=== PATIENT | female | born 1945 | race Caucasian/White ===

== ENCOUNTER 2018-08-18 14:44 | Inpatient (IN) | payer MEDICARE ==
[2018-08-18 15:24] LABS: ADD MAN DIFF? NO
[2018-08-18 15:33] LABS: BASOPHILS % 0.4 % (0.0-2.0); EOSINOPHILS # 0.1 10^3/ul (0.0-0.5); EOSINOPHILS % 0.9 % (0.0-7.0); HEMATOCRIT 27.8 % (37.0-47.0); HEMOGLOBIN 8.9 g/dl (12.0-16.0); LYMPHOCYTES # 0.7 10^3/ul (0.8-2.9); LYMPHOCYTES % 9.3 % (15.0-51.0); MEAN CORPUSCULAR HEMOGLOBIN 34.4 pg (29.0-33.0); MEAN CORPUSCULAR VOLUME 107.3 fl (82.0-101.0); MEAN PLATELET VOLUME 9.7 fl (7.4-10.4); MONOCYTE # 0.8 10^3/ul (0.3-0.9); MONOCYTES % 9.7 % (0.0-11.0); NEUTROPHIL # 6.1 10^3/ul (1.6-7.5); NEUTROPHILS % 78.9 % (39.0-77.0); PLATELET COUNT 270 10^3/UL (140-415); RED BLOOD COUNT 2.59 10^6/ul (4.20-5.40); RED CELL DISTRIBUTION WIDTH 15.2 % (11.5-14.5)
[2018-08-18 15:33] LABS: WHITE BLOOD COUNT 7.7 10^3/ul (4.8-10.8)
[2018-08-18 15:41] LABS: ANION GAP 6 (5-13); BLOOD UREA NITROGEN 11 mg/dl (7-20); CALCIUM 8.4 mg/dl (8.4-10.2); CARBON DIOXIDE 33 mmol/L (21-31); CHLORIDE 103 mmol/L (97-110); CREATININE 0.37 mg/dl (0.44-1.00); GLUCOSE 119 mg/dl (70-220); SODIUM 142 mmol/L (135-144)
[2018-08-18 15:44] LABS: INR 0.89; PROTIME 12.2 Sec (11.9-14.9)
[2018-08-18 15:45] LABS: PARTIAL THROMBOPLASTIN TIME 38.2 Sec (23.0-35.0)
[2018-08-18 15:46] LABS: POTASSIUM 2.6 mmol/L (3.5-5.1)
[2018-08-18] MEDS: morphine 2 MG INJ IV (17:38)
[2018-08-18] MEDS: ONDANSETRON 4 MG INJ IV (17:38)
[2018-08-18] MEDS: POTASSIUM CHLORIDE 100 ML IVPB ×2 (17:39→19:48)
[2018-08-18] MEDS: POTASSIUM CHLORIDE (SR) 20 MEQ TAB PO (17:39)
[2018-08-18] MEDS: SOD CHLORIDE 0.9% 1,000 ML IV (17:39)
[2018-08-18] MEDS ORDERED: NACL 0.9% 3 ML SYG IV (19:00)
[2018-08-18] MEDS: FAMOTIDINE 20 MG INJ IV (19:17)
[2018-08-18] MEDS: DEXTROSE 5%-0.45% NACL 1,000 ML IV (19:17)
[2018-08-19] MEDS: METOPROLOL 25 MG TAB PO ×3 (00:50→20:58)
[2018-08-19] MEDS: MAGNESIUM SULFATE 1 GM/D5W 100 ML IVPB (01:59)
[2018-08-19] MEDS: HYDROCODONE/APAP (5/325) TAB PO ×3 (02:06→20:04)
[2018-08-19 05:32] LABS: ADD MAN DIFF? NO
[2018-08-19 05:49] LABS: WHITE BLOOD COUNT 6.9 10^3/ul (4.8-10.8)
[2018-08-19 05:49] LABS: BASOPHILS % 0.1 % (0.0-2.0); EOSINOPHILS % 0.4 % (0.0-7.0); HEMATOCRIT 23.9 % (37.0-47.0); HEMOGLOBIN 7.6 g/dl (12.0-16.0); LYMPHOCYTES # 0.7 10^3/ul (0.8-2.9); LYMPHOCYTES % 10.4 % (15.0-51.0); MEAN CORPUSCULAR HEMOGLOBIN 34.5 pg (29.0-33.0); MEAN CORPUSCULAR HGB CONC 31.8 g/dl (32.0-37.0); MEAN CORPUSCULAR VOLUME 108.6 fl (82.0-101.0); MEAN PLATELET VOLUME 10.1 fl (7.4-10.4); MONOCYTE # 0.8 10^3/ul (0.3-0.9); MONOCYTES % 11.5 % (0.0-11.0); NEUTROPHIL # 5.3 10^3/ul (1.6-7.5); NEUTROPHILS % 76.9 % (39.0-77.0); PLATELET COUNT 237 10^3/UL (140-415); RED CELL DISTRIBUTION WIDTH 15.1 % (11.5-14.5)
[2018-08-19 05:54] LABS: HEMOGLOBIN A1C 5.1 % (0-5.9)
[2018-08-19 06:04] LABS: IRON 21 ug/dl (35-150)
[2018-08-19 06:13] LABS: % IRON SATURATION 12 % SAT (22-52); TOTAL IRON BINDING CAPACITY 170 ug/dl (241-421)
[2018-08-19 06:15] LABS: ALANINE AMINOTRANSFERASE 22 IU/L (13-69); ALBUMIN 2.5 g/dl (3.3-4.9); ALBUMIN/GLOBULIN RATIO 0.89; ALKALINE PHOSPHATASE 69 IU/L (42-121); ANION GAP 6 (5-13); ASPARTATE AMINO TRANSFERASE 13 IU/L (15-46); BILIRUBIN,INDIRECT 0.8 mg/dl (0-1.1); BILIRUBIN,TOTAL 0.8 mg/dl (0.2-1.3); BLOOD UREA NITROGEN 9 mg/dl (7-20); CALCIUM 8.1 mg/dl (8.4-10.2); CARBON DIOXIDE 31 mmol/L (21-31); CHLORIDE 105 mmol/L (97-110); CREATININE 0.33 mg/dl (0.44-1.00); GLUCOSE 107 mg/dl (70-220); MAGNESIUM 2.3 mg/dl (1.7-2.5); POTASSIUM 3.4 mmol/L (3.5-5.1); SODIUM 142 mmol/L (135-144); TOTAL PROTEIN 5.3 g/dl (6.1-8.1)
[2018-08-19] MEDS: FAMOTIDINE 20 MG INJ IV (09:32)
[2018-08-19] MEDS: ESCITALOPRAM 10 MG TAB PO (09:38)
[2018-08-19 10:50] LABS: ADD MAN DIFF? NO
[2018-08-19 10:55] LABS: BASOPHILS % 0.3 % (0.0-2.0); EOSINOPHILS % 0.5 % (0.0-7.0); HEMATOCRIT 22.8 % (37.0-47.0); HEMOGLOBIN 7.2 g/dl (12.0-16.0); LYMPHOCYTES # 0.8 10^3/ul (0.8-2.9); LYMPHOCYTES % 10.6 % (15.0-51.0); MEAN CORPUSCULAR HEMOGLOBIN 34.6 pg (29.0-33.0); MEAN CORPUSCULAR HGB CONC 31.6 g/dl (32.0-37.0); MEAN CORPUSCULAR VOLUME 109.6 fl (82.0-101.0); MEAN PLATELET VOLUME 9.8 fl (7.4-10.4); MONOCYTES % 13.8 % (0.0-11.0); NEUTROPHIL # 5.5 10^3/ul (1.6-7.5); NEUTROPHILS % 74.1 % (39.0-77.0); PLATELET COUNT 246 10^3/UL (140-415); RED BLOOD COUNT 2.08 10^6/ul (4.20-5.40); RED CELL DISTRIBUTION WIDTH 15.1 % (11.5-14.5)
[2018-08-19 10:55] LABS: WHITE BLOOD COUNT 7.5 10^3/ul (4.8-10.8)
[2018-08-19] MEDS: morphine 2 MG INJ IV ×3 (11:33→23:06)
[2018-08-19] MEDS: PERMETHRIN 5% 60 GM CR TOP (20:57)
[2018-08-19] MEDS: HEPARIN 5,000 UNIT/1 ML VIAL SC (20:59)
[2018-08-20 03:23] LABS: ADD MAN DIFF? NO
[2018-08-20 03:48] LABS: ANION GAP 6 (5-13); BLOOD UREA NITROGEN 12 mg/dl (7-20); CALCIUM 8.1 mg/dl (8.4-10.2); CARBON DIOXIDE 33 mmol/L (21-31); CHLORIDE 102 mmol/L (97-110); CREATININE 0.36 mg/dl (0.44-1.00); GLUCOSE 115 mg/dl (70-220); POTASSIUM 3.8 mmol/L (3.5-5.1); SODIUM 141 mmol/L (135-144)
[2018-08-20 03:49] LABS: WHITE BLOOD COUNT 7.1 10^3/ul (4.8-10.8)
[2018-08-20 03:49] LABS: BASOPHILS % 0.4 % (0.0-2.0); EOSINOPHILS # 0.1 10^3/ul (0.0-0.5); EOSINOPHILS % 1.1 % (0.0-7.0); HEMATOCRIT 23.5 % (37.0-47.0); HEMOGLOBIN 7.4 g/dl (12.0-16.0); LYMPHOCYTES % 13.3 % (15.0-51.0); MEAN CORPUSCULAR HEMOGLOBIN 34.7 pg (29.0-33.0); MEAN CORPUSCULAR HGB CONC 31.5 g/dl (32.0-37.0); MEAN CORPUSCULAR VOLUME 110.3 fl (82.0-101.0); MONOCYTE # 0.9 10^3/ul (0.3-0.9); MONOCYTES % 12.9 % (0.0-11.0); NEUTROPHIL # 5.1 10^3/ul (1.6-7.5); NEUTROPHILS % 71.7 % (39.0-77.0); PLATELET COUNT 257 10^3/UL (140-415); RED BLOOD COUNT 2.13 10^6/ul (4.20-5.40); RED CELL DISTRIBUTION WIDTH 15.1 % (11.5-14.5)
[2018-08-20 04:41] LABS: IMMEDIATE SPIN CROSSMATCH 1 1
[2018-08-20] MEDS: HYDROCODONE/APAP (5/325) TAB PO (05:34)
[2018-08-20] MEDS: FAMOTIDINE 20 MG INJ IV (08:41)
[2018-08-20] MEDS: MULTIVITAMINS THERAPEUTIC TAB PO (08:41)
[2018-08-20] MEDS: ASCORBIC ACID 500 MG TAB PO (08:41)
[2018-08-20] MEDS: ZINC SULFATE 220 MG CAP PO (08:41)
[2018-08-20] MEDS: FOLIC ACID 1 MG TAB PO (08:41)
[2018-08-20] MEDS: ESCITALOPRAM 10 MG TAB PO (08:41)
[2018-08-20] MEDS: METOPROLOL 25 MG TAB PO ×2 (08:42→20:23)
[2018-08-20] MEDS: HEPARIN 5,000 UNIT/1 ML VIAL SC ×2 (08:43→20:23)
[2018-08-20] MEDS: morphine 2 MG INJ IV ×2 (14:12→21:04)
[2018-08-21] MEDS: morphine 2 MG INJ IV ×3 (01:34→14:57)
[2018-08-21] MEDS: HYDROCODONE/APAP (5/325) TAB PO ×2 (04:12→14:08)
[2018-08-21] MEDS: ZINC SULFATE 220 MG CAP PO (08:51)
[2018-08-21] MEDS: MULTIVITAMINS THERAPEUTIC TAB PO (08:51)
[2018-08-21] MEDS: ASCORBIC ACID 500 MG TAB PO (08:51)
[2018-08-21] MEDS: FOLIC ACID 1 MG TAB PO (08:51)
[2018-08-21] MEDS: ESCITALOPRAM 10 MG TAB PO (08:51)
[2018-08-21] MEDS: HEPARIN 5,000 UNIT/1 ML VIAL SC ×2 (08:53→20:31)
[2018-08-21] MEDS: METOPROLOL 25 MG TAB PO ×2 (09:00→20:26)
[2018-08-22] MEDS: ASCORBIC ACID 500 MG TAB PO (08:39)
[2018-08-22] MEDS: ESCITALOPRAM 10 MG TAB PO (08:39)
[2018-08-22] MEDS: ZINC SULFATE 220 MG CAP PO (08:39)
[2018-08-22] MEDS: morphine 2 MG INJ IV ×4 (08:39→23:53)
[2018-08-22] MEDS: FOLIC ACID 1 MG TAB PO (08:39)
[2018-08-22] MEDS: MULTIVITAMINS THERAPEUTIC TAB PO (08:40)
[2018-08-22] MEDS: HEPARIN 5,000 UNIT/1 ML VIAL SC ×2 (08:40→21:36)
[2018-08-22] MEDS: METOPROLOL 25 MG TAB PO ×2 (08:41→21:36)
[2018-08-22] MEDS: ONDANSETRON 4 MG INJ IV (10:37)
[2018-08-22] MEDS: HYDROCODONE/APAP (5/325) TAB PO ×2 (10:37→16:52)
[2018-08-23] MEDS: HYDROCODONE/APAP (5/325) TAB PO ×3 (02:05→20:11)
[2018-08-23] MEDS: morphine 2 MG INJ IV ×5 (05:09→22:09)
[2018-08-23] MEDS: HEPARIN 5,000 UNIT/1 ML VIAL SC ×2 (08:07→20:13)
[2018-08-23] MEDS: MULTIVITAMINS THERAPEUTIC TAB PO (08:07)
[2018-08-23] MEDS: ESCITALOPRAM 10 MG TAB PO (08:08)
[2018-08-23] MEDS: ZINC SULFATE 220 MG CAP PO (08:08)
[2018-08-23] MEDS: ASCORBIC ACID 500 MG TAB PO (08:08)
[2018-08-23] MEDS: FOLIC ACID 1 MG TAB PO (08:08)
[2018-08-23] MEDS: METOPROLOL 25 MG TAB PO ×2 (08:10→20:14)
[2018-08-24] MEDS: morphine 2 MG INJ IV ×4 (04:18→20:05)
[2018-08-24] MEDS: FOLIC ACID 1 MG TAB PO (09:15)
[2018-08-24] MEDS: ESCITALOPRAM 10 MG TAB PO (09:15)
[2018-08-24] MEDS: MULTIVITAMINS THERAPEUTIC TAB PO (09:16)
[2018-08-24] MEDS: METOPROLOL 25 MG TAB PO ×2 (09:16→20:05)
[2018-08-24] MEDS: ZINC SULFATE 220 MG CAP PO (09:16)
[2018-08-24] MEDS: ASCORBIC ACID 500 MG TAB PO (09:16)
[2018-08-24] MEDS: HEPARIN 5,000 UNIT/1 ML VIAL SC ×2 (09:17→20:09)
[2018-08-24] MEDS: HYDROCODONE/APAP (5/325) TAB PO ×2 (15:41→21:37)
[2018-08-25] MEDS: morphine 2 MG INJ IV ×6 (00:19→22:01)
[2018-08-25] MEDS: HYDROCODONE/APAP (5/325) TAB PO (07:38)
[2018-08-25] MEDS: ASCORBIC ACID 500 MG TAB PO (10:17)
[2018-08-25] MEDS: MULTIVITAMINS THERAPEUTIC TAB PO (10:17)
[2018-08-25] MEDS: ZINC SULFATE 220 MG CAP PO (10:17)
[2018-08-25] MEDS: FOLIC ACID 1 MG TAB PO (10:17)
[2018-08-25] MEDS: METOPROLOL 25 MG TAB PO ×2 (10:18→21:44)
[2018-08-25] MEDS: ESCITALOPRAM 10 MG TAB PO (10:18)
[2018-08-25] MEDS: HEPARIN 5,000 UNIT/1 ML VIAL SC ×2 (10:19→21:46)
[2018-08-25] MEDS: ONDANSETRON 4 MG INJ IV (10:21)
[2018-08-25] MEDS: ACETAMINOPHEN 325 MG TAB PO (10:21)
[2018-08-25 14:36] LABS: ADD MAN DIFF? NO
[2018-08-25 14:51] LABS: WHITE BLOOD COUNT 6.7 10^3/ul (4.8-10.8)
[2018-08-25 14:51] LABS: BASOPHILS % 0.3 % (0.0-2.0); EOSINOPHILS # 0.1 10^3/ul (0.0-0.5); HEMATOCRIT 26.4 % (37.0-47.0); HEMOGLOBIN 8.5 g/dl (12.0-16.0); LYMPHOCYTES % 14.1 % (15.0-51.0); MEAN CORPUSCULAR HEMOGLOBIN 34.1 pg (29.0-33.0); MEAN CORPUSCULAR HGB CONC 32.2 g/dl (32.0-37.0); MEAN PLATELET VOLUME 9.7 fl (7.4-10.4); MONOCYTES % 14.1 % (0.0-11.0); NEUTROPHIL # 4.7 10^3/ul (1.6-7.5); NEUTROPHILS % 69.9 % (39.0-77.0); PLATELET COUNT 184 10^3/UL (140-415); RED BLOOD COUNT 2.49 10^6/ul (4.20-5.40); RED CELL DISTRIBUTION WIDTH 16.3 % (11.5-14.5)
[2018-08-25 14:58] LABS: ANION GAP 3 (5-13); BLOOD UREA NITROGEN 11 mg/dl (7-20); CALCIUM 8.1 mg/dl (8.4-10.2); CARBON DIOXIDE 29 mmol/L (21-31); CHLORIDE 102 mmol/L (97-110); CREATININE 0.34 mg/dl (0.44-1.00); GLUCOSE 112 mg/dl (70-220); POTASSIUM 4.6 mmol/L (3.5-5.1); SODIUM 134 mmol/L (135-144)
[2018-08-26] MEDS: morphine 2 MG INJ IV ×9 (03:12→22:27)
[2018-08-26] MEDS: ESCITALOPRAM 10 MG TAB PO (08:49)
[2018-08-26] MEDS: ASCORBIC ACID 500 MG TAB PO (08:49)
[2018-08-26] MEDS: FOLIC ACID 1 MG TAB PO (08:49)
[2018-08-26] MEDS: ZINC SULFATE 220 MG CAP PO (08:49)
[2018-08-26] MEDS: MULTIVITAMINS THERAPEUTIC TAB PO (08:49)
[2018-08-26] MEDS: METOPROLOL 25 MG TAB PO ×2 (08:50→20:00)
[2018-08-26] MEDS: HEPARIN 5,000 UNIT/1 ML VIAL SC ×2 (08:55→20:01)
[2018-08-26] MEDS ORDERED: morphine 2 MG INJ IV (12:00)
[2018-08-27] MEDS: morphine 2 MG INJ IV ×2 (05:28→12:09)
[2018-08-27] MEDS: ESCITALOPRAM 10 MG TAB PO (08:49)
[2018-08-27] MEDS: ZINC SULFATE 220 MG CAP PO (08:49)
[2018-08-27] MEDS: ASCORBIC ACID 500 MG TAB PO (08:50)
[2018-08-27] MEDS: FOLIC ACID 1 MG TAB PO (08:50)
[2018-08-27] MEDS: MULTIVITAMINS THERAPEUTIC TAB PO (08:50)
[2018-08-27] MEDS: METOPROLOL 25 MG TAB PO (08:52)
[2018-08-27] MEDS: HEPARIN 5,000 UNIT/1 ML VIAL SC (08:53)
== END 2018-08-27 15:45 | disposition short-term general hospital (02) | DRG 536 ==
LOC: E/R 14:44 → PP2 18:46
PROC: 30233N1 Transfusion of Nonautologous Red Blood Cells into Peripheral Vein, Percutaneous Approach (ICD-10-PCS; principal; 2018-08-20)
DX: S72.141A Displaced intertrochanteric fracture of right femur, initial encounter for closed fracture (principal); I48.91 Unspecified atrial fibrillation; F03.90 Unspecified dementia, unspecified severity, without behavioral disturbance, psychotic disturbance, mood disturbance, and anxiety; D64.9 Anemia, unspecified; E87.6 Hypokalemia; F32.9 Major depressive disorder, single episode, unspecified; Q65.89 Other specified congenital deformities of hip; W01.10XA Fall on same level from slipping, tripping and stumbling with subsequent striking against unspecified object, initial encounter; Y93.89 Activity, other specified; Y92.099 Unspecified place in other non-institutional residence as the place of occurrence of the external cause; Y99.8 Other external cause status
CPT/HCPCS: 36415; 36430; 70450; 71045; 72170; 72192; 73510; 73550; 73560; 80048; 80053; 82607; 82728; 82746; 83036; 83540; 83735; 85025; 85610; 85730; 86850; 86900; 86901; 86920; 87081; 93005; 93306; 96365; 96375; 99285-25